=== PATIENT | female | born 1980 | race Caucasian/White ===

== ENCOUNTER 2016-08-22 14:43 | Emergency (ER) | payer MEDICAID ==
[~2016-08-22 14:43] MED LIST: BUSPIRONE HCL10 M2 PO; LEXAPRO20 M2 PO; MOTRIN200 MG/TA1 PO; NORCO 5-325 TA1 EACH PO; SLEEP MED
[2016-08-22 15:14] LABS: eGFR VALUE FOR BLACK >90 mL/Min
== END 2016-08-22 18:15 ==
LOC: EDMED 14:43
PROVIDERS: Emergency Medicine
DX: R51 Headache (principal); F41.9 Anxiety disorder, unspecified; F32.9 Major depressive disorder, single episode, unspecified; Z79.899 Other long term (current) drug therapy; Z90.49 Acquired absence of other specified parts of digestive tract; Z98.51 Tubal ligation status
CPT/HCPCS: A9577; J0780; J1885; J7030

== ENCOUNTER 2016-09-03 14:24 | Emergency (ER) | payer MEDICAID ==
[2016-09-03] MEDS ORDERED: PREDNISONE10 M1 PO (15:37)
[2016-09-03] MEDS ORDERED: PROAIR HFA8.5 GM INH (15:37)
== END 2016-09-03 15:51 ==
LOC: EDMED 14:24
DX: J20.9 Acute bronchitis, unspecified (principal)

== ENCOUNTER 2016-11-18 21:16 | Emergency (ER) | payer MEDICAID, OTHER ==
[~2016-11-18 21:16] MED LIST changes: +PREDNISONE10 M1 PO; +PROAIR HFA8.5 GM INH
[2016-11-18 22:18] LABS: BASO % 0.2 % (0-2); EOSINOPHIL ABSOLUTE COUNT 0.1 tho/cmm (0.0-0.7); HCT-HEMATOCRIT 39.9 % (34.0-49.0); HGB-HEMOGLOBIN 13.5 gm/dl (12.0-15.5); IMMATURE GRANULOCYTES ABSOLUTE 0.02 tho/cmm (0-0.03); IMMATURE GRANULOCYTES PERCENT 0.2 % (0-0.3); LYMPH % 36.3 % (20-45); LYMPH ABSOLUTE COUNT 3.3 tho/cmm (0.8-4.5); MCHC MEAN CORPUSCULAR HGB CONC 33.8 % (32.0-36.0); MCV (MEAN CELL VOLUME) 88.7 fl (82.0-96.0); MEAN PLATELET VOLUME 8.8 cmc (9.4-12.4); MONO % 4.8 % (0-12); MONOCYTE ABSOLUTE COUNT 0.4 tho/cmm (0.0-1.2); NEUTROPHIL ABSOLUTE COUNT 5.2 tho/cmm (1.6-8.0); NEUTROPHIL-AUTOMATED 5.2 tho/cmm (1.6-8.0); NEUTROPHILS % 57.5 % (40-80); PLATELET COUNT 326 tho/cmm (150-450); RED CELL DISTRIBUTION WIDTH 12.4 % (12.4-16.4)
[2016-11-18 22:28] LABS: PREGNANCY-SERUM NEGATIVE (NEGATIVE)
[2016-11-18 22:35] LABS: ALB/GLOB RATIO 0.8 (0.8-2.0); ALBUMIN 3.6 g/dl (3.5-5.0); ALKALINE PHOSPHATASE 70 U/L (33-138); ALT/SGPT 26 U/L (12-78); BILIRUBIN,TOTAL 0.9 mg/dl (0-1.5); BLOOD UREA NITROGEN 18 mg/dl (6-24); CALCIUM 9.1 mg/dl (8.5-10.5); CARBON DIOXIDE-VENOUS 24 mmol/L (22-32); CHLORIDE 104 mmol/l (96-110); CREATININE 0.78 mg/dl (0.50-1.10); GLUCOSE 152 mg/dL (70-110); SODIUM 138 mmol/L (135-145); eGFR VALUE FOR BLACK >90 mL/Min
[2016-11-18 22:37] LABS: ANION GAP 14 mmol/L (0-20); AST/SGOT 23 U/L (10-40)
[2016-11-18 22:38] LABS: POTASSIUM 3.7 mmol/L (3.7-5.1)
== END 2016-11-19 00:03 ==
LOC: EDMED 21:16
PROVIDERS: Emergency Medicine
DX: S13.4XXA Sprain of ligaments of cervical spine, initial encounter (principal); S20.211A Contusion of right front wall of thorax, initial encounter; S30.1XXA Contusion of abdominal wall, initial encounter; F41.9 Anxiety disorder, unspecified; F43.10 Post-traumatic stress disorder, unspecified; Z87.891 Personal history of nicotine dependence; Z79.899 Other long term (current) drug therapy; V49.40XA Driver injured in collision with unspecified motor vehicles in traffic accident, initial encounter; Y92.410 Unspecified street and highway as the place of occurrence of the external cause
CPT/HCPCS: Q9967